=== PATIENT | female | born 1940 | race African-American/Black ===

== ENCOUNTER 2018-06-11 07:53 | Inpatient (IN) ==
--- NOTE | 2018-06-10 08:39 | P.HPNS ---
<GarydoritaGio shu - Last Filed: 06/10/18 12:57> History of Present Illness Service: Neurosurgery Primary Care Physician: UNKNOWN Chief Complaint: Low back pain. History of Present Illness: Pt is a 78 year old female who previously underwent a left L4/L5 in 2010 with improvement of her pain and symptoms. Unfortunately she developed recurrent progressive pain in her low back. She denies associated falls or trauma. She also has pain radiating down her left buttocks posteriorly to her calf. She has numbness and tingling in both calves. She reports of weakness in both legs , left greater than right. She reports of urinary incontinence. She denies bladder incontinence but has urgency. She has undergone several periods of physical therapy multiple times for more than 6 months which only makes her pain worse. She also had three epidural steroid injections with Dr. Velazquez, her pain specialist without relief. She was evaluated by orthopedic surgeon Dr. Nelson who recommended surgery with bone graft. - Diagnosis (1) Degeneration of lumbar intervertebral disc (2) Spinal stenosis of lumbar region (3) Mechanical low back pain Inpatient Certification: I certify that the inpatient services were ordered in accordance with Medicare regulations governing the order. This includes certification that hospital inpatient services are reasonable and necessary and in the case of services not specified as inpatient-only under 42 CFR 419.22(n), that they are appropriately provided as inpatient services in accordance to with the 2-midnight benchmark under 43 CFR 412.3(e) Estimated Total Length of Stay (Days): 3 Plans for Post Hospital Care: Home Review of Systems Constitutional: Denies chills, Denies fever(s) Eyes: Denies double vision, Denies loss of vision Ears, Nose, Mouth, and Throat: Denies sinus pain, Denies sore throat Cardiovascular: Denies chest pain, Denies shortness of breath Respiratory: Denies cough, Denies shortness of breath, Denies wheezing Gastrointestinal: Denies abdominal pain, Denies constipation, Denies nausea, Denies vomiting Musculoskeletal: Reports back pain, Reports numbness Skin/Breast: Denies redness, Denies rash Neurologic: Reports numbness (Numbness and tingling in both calves.), Reports tingling (Numbness and tingling in both calves.) Psychiatric: Denies anxiety, Denies depression Hematologic/Lymphatic: Denies easy bleeding, Denies easy bruising PMFSH - History History Provided By: Patient - Medical History Medical History: Medical History (Last Updated 06/05/18 @ 10:15 by Neva Johnson RN) Diabetes History of anesthesia reaction Hypertension Osteoarthritis Osteoporosis - Surgical History Surgical History: Surgical History (Last Updated 06/05/18 @ 10:15 by Neva Johnson RN) H/O laminectomy - Tobacco History Smoking Status: Never smoker - Alcohol History How Often Do You Have a Drink Containing Alcohol: Never - Substance Use History Substance History: No History of Abuse Medications and Allergies Allergies Allergy/AdvReac Type Severity Reaction Status Date / Time No Known Allergies Allergy Verified 06/11/18 08:53 Home Medications Medication Instructions Recorded Confirmed Type alendronate [Fosamax] 70 mg PO TH 06/05/18 06/11/18 History diclofenac sodium 75 mg PO BID 06/05/18 06/11/18 History gabapentin 300 mg PO BID 06/05/18 06/11/18 History lisinopril 20 mg PO DAILY 06/05/18 06/11/18 History metformin 500 mg PO BID 06/05/18 06/11/18 History metoprolol tartrate 25 mg PO BID 06/05/18 06/11/18 History Exam - Constitutional cooperative - Routine HEENT Exam Head: Present: normocephalic, atraumatic Eye: Present: PERRL. Absent: conjunctival icterus ENT: Present: oropharynx clear - Routine Neck Exam Present: supple, trachea midline - Routine Respiratory Exam Present: CTA bilaterally. Absent: rhonchi, wheezes - Routine Cardiovascular Exam Present: RRR, S1, S2. Absent: murmur - Routine Abdominal Exam Present: soft, normoactive bowel sounds - Routine Skin Exam Absent: cyanosis, erythema - Routine Neurological Exam Present: alert, sensory deficit (decreased in L4 distribution.), moving all extremities, normal tone, normal speech. Absent: motor deficit, normal reflexes (Patella reflexes trace bilaterally Achilles reflex 1+ bilaterally.), plantar reflex, altered mental status Caprini VTE Risk Assessment Caprini VTE Risk Assessment: Moderate/High Risk (score >= 2) VTE Pharmacological Exception Reason: Spinal surgery Caprini Risk Assessment Model: Point Value = 1 Point Value = 2 Point Value = 3 Point Value = 5 Age 41-60 Minor surgery BMI > 25 kg/m2 Swollen legs Varicose veins or History of unexplained or recurrent spontaneous Oral contraceptives or hormone replacement Sepsis (< 1 month) Serious lung disease, including pneumonia (< 1 month) Abnormal pulmonary function Acute myocardial infarction Congestive heart failure (< 1 month) History of inflammatory bowel disease Medical patient at bed rest Age 61-74 Arthroscopic surgery Major open surgery (> 45 min) Laparoscopic surgery (> 45 min) Malignancy Confined to bed (> 72 hours) Immobilizing plaster cast Central venous access Age >= 75 History of VTE Family history of VTE Factor V Leiden Prothrombin [id number] Lupus anticoagulant Anticardiolipin antibodies Elevated serum homocysteine Heparin-induced thrombocytopenia Other congenital or acquired thrombophilia Stroke (< 1 month) Elective arthroplasty Hip, pelvis, or leg fracture Acute spinal cord injury (< 1 month) Prophylaxis Regimen: Total Risk Factor Score Risk Level Prophylaxis Regimen 0-1 Low Early ambulation 2 Moderate Order ONE of the following: *Sequential Compression Device (SCD) *Heparin 5000 units SQ BID 3-4 Higher Order ONE of the following medications: *Heparin 5000 units SQ TID *Enoxaparin/Lovenox 40 mg SQ daily (WT < 150 kg, CrCl > 30 mL/min) *Enoxaparin/Lovenox 30 mg SQ daily (WT < 150 kg, CrCl > 10-29 mL/min) *Enoxaparin/Lovenox 30 mg SQ BID (WT < 150 kg, CrCl > 30 mL/min) AND/OR *Sequential Compression Device (SCD) 5 or more Highest Order ONE of the following medications: *Heparin 5000 units SQ TID (Preferred with Epidurals) *Enoxaparin/Lovenox 40 mg SQ daily (WT < 150 kg, CrCl > 30 mL/min) *Enoxaparin/Lovenox 30 mg SQ daily (WT < 150 kg, CrCl > 10-29 mL/min) *Enoxaparin/Lovenox 30 mg SQ BID (WT < 150 kg, CrCl > 30 mL/min) AND *Sequential Compression Device (SCD) Assessment and Plan - Assessment (1) Degeneration of lumbar intervertebral disc Code(s): M51.36 - Other intervertebral disc degeneration, lumbar region Status : Acute (2) Spinal stenosis of lumbar region Code(s): M48.061 - Spinal stenosis, lumbar region without neurogenic claudication Status: Acute (3) Mechanical low back pain Code(s): M54.5 - Low back pain Status: Acute - Plan Pt has severe degenerative disc disease at L3/L4 and L4/L5 with intractable mechanical back pain and severe secondary spinal stenosis at L3/L4 with clinical evidence of L4 radiculopathy. Her MRI findings correlate with her clinical symptoms. She has failed to improve with conservative treatment including physical therapy, anti-inflammatory medications and muscle relaxants, as well as epidural steroid injections performed by an interventional pain specialist. She has also been seen by orthopedics who has recommended a lumbar decompressive laminectomy and fusion. Pt is scheduled for a L3/L4 with possible L4/L5 hemilaminectomy, mesiofacetectomy, foraminotomy with microsurgical resection of the disc with interbody arthrodesis using PEEK cage. The procedure, risks, benefits, alternative, and recovery time were explained in detail and she wants to proceed and was scheduled accordingly. <Steve Bhat - Last Filed: 06/11/18 17:11> History of Present Illness Primary Care Physician: No Primary Care Physician - Diagnosis (1) Degeneration of lumbar intervertebral disc (2) Spinal stenosis of lumbar region (3) Mechanical low back pain Inpatient Certification: I certify that the inpatient services were ordered in accordance with Medicare regulations governing the order. This includes certification that hospital inpatient services are reasonable and necessary and in the case of services not specified as inpatient-only under 42 CFR 419.22(n), that they are appropriately provided as inpatient services in accordance to with the 2-midnight benchmark under 43 CFR 412.3(e) [facility] - Medical History Medical History: Medical History (Last Updated 06/05/18 @ 10:15 by Neva Johnsno RN) Diabetes History of anesthesia reaction Hypertension Osteoarthritis Osteoporosis - Surgical History Surgical History: Surgical History (Last Updated 06/05/18 @ 10:15 by Neva Johnson RN) H/O laminectomy Medications and Allergies Active Medications: Active Medications Acetaminophen (Tylenol) 650 mg PO Q4H PRN PRN Reason: TEMPERATURE > 101.5 F Hydrocodone Bitart/Acetaminophen ([place] 10/325) 2 tab PO Q4H PRN PRN Reason: PAIN SCALE 6 TO 10 Al Hydroxide/Mg Hydroxide (Milk Of Magnesia Liq) 30 ml PO Q12H PRN PRN Reason: Mild Constipation Albuterol (Albuterol Neb (Prn)) 2.5 mg NEB Q4HR NEB PRN PRN Reason: WHEEZING Bisacodyl (Dulcolax Supp) 10 mg RECTAL DAILY PRN PRN Reason: SEVERE CONSITIPATION Cyclobenzaprine HCl (Flexeril) 10 mg PO Q8H PRN PRN Reason: MUSCLE SPASM Diphenhydramine HCl (Benadryl Inj) 25 mg IV.PUSH Q6H PRN PRN Reason: for itching Gabapentin (Neurontin) 300 mg PO BID [facility] Lactated Ringer's (Lr 1000 Ml Inj) 1,000 mls @ 30 mls/hr IV.SIG .Q24H [facility] Stop: 06/12/18 08:29 Last Admin: 06/11/18 09:44 Dose: 30 mls/hr Sodium Chloride (Ns Inj) 500 mls @ 30 mls/hr IV.SIG .Q10H [facility] Vancomycin HCl 1,000 mg/ (Sodium Chloride) 250 mls @ 250 mls/hr IV.SIG QUALITY ASSURANCE SUPERVISOR FINAL [facility] Stop: 06/14/18 08:59 Last Admin: 06/11/18 09:50 Dose: 250 mls/hr Sodium Chloride (Ns Inj) 1,000 mls @ 30 mls/hr IV.SIG .Q24H [facility] Cefazolin Sodium/Dextrose (Ancef 2 Gm Premix Inj) 2 gm in 50 mls @ 100 mls/hr IV.SIG Q8H [facility] Stop: 06/12/18 08:29 Hydromorphone/Sodium Chloride (Dilaudid Soil Engineer Inj) 6 mg in 30 mls @ 0 mls/hr ASSOCIATE ACCOUNT EXECUTIVE UNSCH PRN PRN Reason: prn pain Lactulose (Lactulose Liq) 30 ml PO DAILY PRN PRN Reason: SEVERE CONSITIPATION Lisinopril (Prinivil) 20 mg PO DAILY [facility] Metoprolol Tartrate (Lopressor) 25 mg PO BID [facility] Miscellaneous Information (Misc Nursing Information) 0 each OTHER UNSCH PRN PRN Reason: SEE LABEL COMMENTS Stop: 06/12/18 15:08 Morphine Sulfate (Morphine Inj) 2 mg IV.PUSH Q2H PRN PRN Reason: Pain Scale 1 to 6 Naloxone HCl (Narcan Inj) 0.4 mg IV.PUSH PRN PRN PRN Reason: SEE LABEL COMMENTS Pantoprazole Sodium (Protonix) 40 mg PO DAILY [facility] Senna/Docusate Sodium (Sloane-Colace) 1 tab PO BID [facility] Sennosides (Senokot) 17.2 mg PO Q12H PRN PRN Reason: Moderate Constipation Exam Vital signs: Vital Signs 06/11/18 09:03 Temperature 98.5 F Pulse Rate 85 Respiratory Rate 22 Blood Pressure 155/107 H Pulse Oximetry 98 Intake & Output 06/10/18 06/11/18 06/11/18 18:59 06:59 18:59 Intake Total 2300 / 2300 Output Total 1700 / 1700 Balance 600 / 600 Weight 49.2 kg Intake: Anesthesia Amount 2300 / 2300 Output: Estimated Blood Loss 200 / 200 Urine Amount (Catheter) 1500 / 1500 Indwelling Urethral Catheter 1500 / 1500 Other: Weight On Admission 49.2 kg Narrative: Ms. Barragan is alert, awake and oriented to time, place and person. Speech is fluent. Cranial nerve examination: pupils to be equal, round and reactive to light. Extra-ocular movements are intact. Facial motor and sensory function are normal and symmetrical. Gross hearing appears intact. Sternocleidomastoid and trapezius muscles are symmetrical. Other cranial nerves are intact. Neck is soft and supple with a good range of motion without pain. Muscle strength is normal in all muscle groups of both upper and lower extremities. Sensory examination is intact to light touch and pin prick in both upper extremities, and decreased in a L4 and L5 dermatomal distribution Deep tendon reflexes are symmetrical in both upper extremities. In the lower extremities the patella are trace and Achilles are 1+. There is a bilateral plantar flexion response. Cerebellar examination is unremarkable, without deficits. Lungs are clear. No wheezing Heart with regular rhythm and rate Skin dry and warm Caprini VTE Risk Assessment Caprini Risk Assessment Model: Point Value = 1 Point Value = 2 Point Value = 3 Point Value = 5 Age 41-60 Minor surgery BMI > 25 kg/m2 Swollen legs Varicose veins or History of unexplained or recurrent spontaneous Oral contraceptives or hormone replacement Sepsis (< 1 month) Serious lung disease, including pneumonia (< 1 month) Abnormal pulmonary function Acute myocardial infarction Congestive heart failure (< 1 month) History of inflammatory bowel disease Medical patient at bed rest Age 61-74 Arthroscopic surgery Major open surgery (> 45 min) Laparoscopic surgery (> 45 min) Malignancy Confined to bed (> 72 hours) Immobilizing plaster cast Central venous access Age >= 75 History of VTE Family history of VTE Factor V Leiden Prothrombin [id number] Lupus anticoagulant Anticardiolipin antibodies Elevated serum homocysteine Heparin-induced thrombocytopenia Other congenital or acquired thrombophilia Stroke (< 1 month) Elective arthroplasty Hip, pelvis, or leg fracture Acute spinal cord injury (< 1 month) Prophylaxis Regimen: Total Risk Factor Score Risk Level Prophylaxis Regimen 0-1 Low Early ambulation 2 Moderate Order ONE of the following: *Sequential Compression Device (SCD) *Heparin 5000 units SQ BID 3-4 Higher Order ONE of the following medications: *Heparin 5000 units SQ TID *Enoxaparin/Lovenox 40 mg SQ daily (WT < 150 kg, CrCl > 30 mL/min) *Enoxaparin/Lovenox 30 mg SQ daily (WT < 150 kg, CrCl > 10-29 mL/min) *Enoxaparin/Lovenox 30 mg SQ BID (WT < 150 kg, CrCl > 30 mL/min) AND/OR *Sequential Compression Device (SCD) 5 or more Highest Order ONE of the following medications: *Heparin 5000 units SQ TID (Preferred with Epidurals) *Enoxaparin/Lovenox 40 mg SQ daily (WT < 150 kg, CrCl > 30 mL/min) *Enoxaparin/Lovenox 30 mg SQ daily (WT < 150 kg, CrCl > 10-29 mL/min) *Enoxaparin/Lovenox 30 mg SQ BID (WT < 150 kg, CrCl > 30 mL/min) AND *Sequential Compression Device (SCD) Assessment and Plan - Assessment (1) Degeneration of lumbar intervertebral disc Code(s): M51.36 - Other intervertebral disc degeneration, lumbar region Status : Acute (2) Spinal stenosis of lumbar region Code(s): M48.061 - Spinal stenosis, lumbar region without neurogenic claudication Status: Acute (3) Mechanical low back pain Code(s): M54.5 - Low back pain Status: Acute - Plan Tello discussed the [id number] details of the surgical procedure, its indications, alternatives, risks, and potential complications. Risks and potential complications include, but are not limited to, infection, blood loss, CSF leak, partial or complete loss of sight in one or both eyes, paresis, paralysis, permanent pain or difficulty swallowing, loss of bowel or bladder function, complications from anesthesia, blood clot, stroke, myocardial infarction, or even . The possibility of nonoperative treatment has been offered.
[2018-06-11] MEDS ORDERED: Chlorhexidine Gluconate 2% 1 Pack (2 Cloths) TOPICAL ONE (08:29)
[2018-06-11] MEDS ORDERED: Metoprolol Tartrate 25 MG Tablet PO ONE (08:29)
[2018-06-11] MEDS ORDERED: Bupivacaine Liposomal PF 1.3% Inj 20 ML Vial ONE (08:42)
[2018-06-11] MEDS ORDERED: Gelatin Size 100 Topical Foam ONE (08:45)
[2018-06-11] MEDS ORDERED: Thrombin Topical Soln 5,000 UNIT Vial TOPICAL ONE (08:45)
[2018-06-11] MEDS ORDERED: Sod Chloride 0.9% Inj 1,000 ML IV.SIG SCH (08:45)
[2018-06-11] MEDS ORDERED: Sodium Chlor 0.9% Inj 500 ML IV.SIG SCH (09:00)
[2018-06-11] MEDS ORDERED: Vancomycin Inj 1,000 MG in Sodium Chlor 0.9% Inj 250 ML IV.SIG SCH (09:00)
[2018-06-11] MEDS ORDERED: Bisacodyl 10 MG Supp RECTAL PRN (09:29)
[2018-06-11] MEDS ORDERED: Morphine Sulfate Inj 2 MG/ML Vial IV.PUSH PRN (09:31)
[2018-06-11] MEDS ORDERED: Acetaminophen 325 MG Tablet PO PRN (09:31)
[2018-06-11] MEDS ORDERED: Ketamine Inj 500 MG/10 ML Vial ONE (09:42)
[2018-06-11] MEDS ORDERED: fentaNYL Citrate Inj 250 MCG/5 ML Ampul ONE (09:42)
[2018-06-11] MEDS ORDERED: Propofol Inj 500 MG/50 ML Vial ONE (09:42)
[2018-06-11] MEDS ORDERED: Glycopyrrolate Inj 1 MG/5 ML Syringe IV.PUSH ONE (09:51)
[2018-06-11] MEDS ORDERED: Lidocaine PF 1% Inj 5 ML Syringe INFILTRATN ONE (09:51)
[2018-06-11] MEDS ORDERED: Phenylephrine/NS 1000 MCG/10ML Syringe IV.PUSH ONE (09:51)
[2018-06-11] MEDS ORDERED: Neostigmine Inj 5 MG/5 ML Syringe IV.PUSH ONE (09:51)
[2018-06-11] MEDS ORDERED: Naloxone Inj 0.4 MG/ML Vial IV.PUSH PRN (15:07)
[2018-06-11] MEDS ORDERED: HYDROmorphone PCA Inj 6 MG/30 ML PCA.VIAL PCA PRN (15:07)
--- NOTE | 2018-06-11 15:28 | XR ---
EXAM DATE: 06/11/2018 3:20 PM EST AGE/SEX: 78 years / Female INDICATIONS: Lumbar fusion, L3-4, 4-5 CLINICAL DATA: This is the patient's initial encounter. Patient reports that signs and symptoms have been present for 1 day and indicates a pain score of Nonresponsive. MEDICAL/SURGICAL HISTORY: Non-responsive. Non-responsive. COMPARISON: No prior exams available for comparison. FINDINGS: Frontal and lateral spot intraoperative fluoroscopic views of the lumbar spine demonstrate posterior gordon and transpedicular screw fixation at L3-L5, and intervertebral fusion hardware placement at L3-4. CONCLUSION: Postsurgical changes. Electronically signed by: Ochoa Combs MD Board Certified Radiologist 06/11/2018 3:27 PM EST
--- NOTE | 2018-06-11 17:18 | P.OP ---
Preoperative Diagnosis: lumbar degenerative disk disease Lumbar radiculopathy Mechanical back pain Postoperative Diagnosis: lumbar degenerative disk disease Lumbar radiculopathy Mechanical back pain Date of procedure: 06/11/18 Procedure: L3-4, L4-L5 redo laminectomy, interbody arthrodhesis using PEEK cage and autologous bone graft, L3-4, L4-L5 instrumental fixation using transpedicular screws and rods, L3-4, L4-L5 posterolateral fusion using autologous bone graft and demineralized bone matrix. Microsurgical dissection Anesthesia: GETA Surgeon: Steve Bhat MD Plastic Tool Maker: Gio Encinas Pathology: none sent Operation and Findings: INDICATIONS FOR THE SURGICAL PROCEDURE Mr miranda is a 78 year-old female who had history of s prior l4-5 laminectomy and presented with intractable mechanical back pain and carlos evidence of L4 and L5 lower extremity radiculopathy. He has failed maximum nonsurgical management including multiple modalities of conservative treatment as well as pain management interventions by an interventional pain specialist. A surgical decompression and arthrodhesis were indicated as a last resort. The [id number] details of the procedure, indications, alternatives, risks and potential complications were fully discussed with the patient. The patient fully understood. All the questions were answered. No guarantees were given. He voiced requesting the procedure and provided informed consents. He was offered the alternative of delaying the procedure and continuing with nonsurgical management. DETAILS OF THE SURGICAL PROCEDURE Prior to the procedure, the procedure, risks, and potential complications revisited with the patient. Placement of electrodes for intraoperative neurophysiological monitoring was completed. The patient was taken to the operative room, and following induction of general anesthesia, endotracheal intubation was performed. A Cobb catheter, bilateral LUANN hose and sequential compression devices were placed and kept throughout the procedure. The patient was positioned prone, over a Christian table over a bolsters. All pressure in the preoperative surgical holding room points were carefully padded with eggcrate and gel mattress. The eyes were tapped shut after ointment was applied by the anesthesiologist to prevent corneal abrasion. A Mary hugger was placed over the expossed lower body to maintain control of the core body temperature. The electrophysiological team placed the needles and electrodes in their proper location and baseline SSEP's and motor evoked potentials were registered. The entrance to each pedicles was marked using a C arm. The lumbar region was prepped and draped in the usual sterile fashion. The surgical procedure was performed in several steps as follow: SURGICAL APPROACH Once the patient was positioned, a localizing cross-table lateral and AP x-ray was performed with a C-arm. Two paramedian small incisions were outlined on the skin approximately 3cm from the midline. The skin incisions were made with a # 10 blade. Small bleeders were controlled with the cautery. The dissection was then carried out into deeper planes and through the thoracolumbar fascia with a Bovie. The intermuscular septum was identified and the muscles were blunted dissected along the septum. The facets and transverse process of L3-4, L4,5 were exposed and the proper anatomical landmarks were identidied. A microsurgical self-retaining retractor was placed on the incision, and a localizing lateralizing cross-table x-ray was performed with an instrument underneath a lamina of the lumbar spine. INSTRUMENTAL FIXATION At this point in the procedure, placement of bilateral transpedicular screws was necessary for stabilization of the spine. Initially, the entry point for the screw was selected anatomically at the junction of the facet, with the transverse process, and the pars interarticularis at L3-4, L4,5. This was started with a Giamshetti needle, followed by the use of K wire. A tap was used to create the threads for the screws. Finally bilateral transpedicular screws were carefully placed bilaterally at L3, L4, and L5 under fluoroscopic visualization. An appropriate purchase was achieved with all screws. The position of each screw was assessed anatomically with an AP, lateral, oblique Xrays. An intraoperative scan view of the spine was then performed using the iso -centric c-arm. Each screw was then assessed electrophysiologically stimulating each screw with a nerve stimulator. SURGICAL DECOMPRESSION There was significant mass effect with compression of the neural structures. In order to relieve neural compression, it was necessary to perform a decompressive laminectomy, with decompression of the spinal canal and bilateral lateral recesses. Note that the scope of such decompression was significantly more extensive than the minimal exposure necessary to perform an interbody fusion, as there was extreme facet arthropathy with severe degeneration of the disk spaces and stenosis cause by the hyperthrophic joint facets. At this point of the procedure the operative microscope was draped in the usual sterile fashion and brought to the field. The rest of the surgical procedure was performed using microdissection technique with the exception of the closure. Once the level was confirmed, the margins of the prior laminectomy were exposed. There was extensive scar tissue from the prior surgery. Once the bony margins were exposed, a laminectomy was performed extending slightly the prior opening using the TPS drill with an AM-8 drill bit. Under the operating microscope, a decompressive laminectomy was carried out at L3-4, L4,5 as follow: The laminae, base of the spinous processes and facets were carefully drilled exposing the ligamentum flavum. The facets were abnormal with severe spondylolisthesis and gross mechanical instability. A large disk protusion was compressing the neural structures and exiting nerve roots. A near complete facetectomy was necessary resulting in further mechanical instability. The ligamentum flavum appeared hypertrophic, resulting on mass effect on the dorsal surface of the neural structures. The superior free border of the ligamentum flavum was elevated with a ligament dissector and the ligamentum flavum was removed with a 3 and 4 mm Kerrison forceps. The ligament was very adherent to the dural sac and during the dissection, ans extreme care was taken during the dissection. The exiting nerve roots were identified, and a wide foraminotomy was performed with a Kerrison in their trajectory towards the neural foramen. Epidural veins located laterally to the dural sac were coagulated with the bipolar cautery, and then incised using microscissors. Gentle medial retraction of the dural sac allowed me to expose the disc space for the discectomy. Upon completion of the discectomy, an excellent decompression of the neural structures was achieved. Increased motion was noted thorough the procedure, which was consistent with mechanical instability at L3-4 , L4,5. INTERBODY ARTHRODHESIS In order to correct the narrowing of the disk space and maintain distraction of the space, and to achieve a solid interbody fusion, it was necessary the insertion of an interbody device into the disk space. Otherwise, the disk space would collapse, compromising the result of the surgical procedure. At this point of the procedure, the annulus fibrosus of the disk was carefully coagulated with a bipolar cautery and incised using an 11 bladed knife. Then, a microdiscectomy was carried out in a standard fashion using a combination of straight and up-biting pituitary forceps. A reverse angle curette was applied underneath the posterior longitudinal ligament, and used to push the disk fragments into the disk space, so they can be safely removed with a pituitary forceps. Once the discectomy was completed, it was necessary to decorticate the endplates, in order to eliminate the cartilaginous endplate and to expose healthy bone appropriate to perform the interbody fusion. The endplates at L3-4 were then thoroughly decorticated using increasing size bone dexter and ring curets, eliminating the cartilaginous fragments from both, the superior and inferior endplates. A disk space distractor was applied to the pedicle screws and gentle distraction was applied. This maneuver was assisted by the use of a disk distractor. Increased motility was noted at the disk, which was consistent with instability due to facet arthropathy. Once a thorough preparation of the disk space was achieved, the disk space was irrigated with antibiotic solution, and the interbody fusion was performed by carefully impacting PPEK cages filled with autologous iliac crest bone graft. The use of several shoe impactors with different angulation, allowed me for an excellent, proper position of the interbody cages L3-4 and L4,5. A solid position of the cage with good purchase was achieved. The position of the cages were assessed anatomically with a probe and radiologically with the C-arm. POSTEROLATERAL FUSION The posterolateral fusion is a critical component to the procedure, to prevent future fatigue and failure of the instrumental fixation. Initially, the transverse processes of the vertebral bodies, lateral surface of the facets and the lateral gutters of the spine were carefully cleaned, eliminating all soft tissue and muscle attachments. The area was then irrigated with a large amount of antibiotic solution. Subsequently, the transverse processes, lateral surface of the facets, and lateral gutters of the spine were thoroughly decorticated using the TPS drill with a 5mm cutting delmar, exposing cancellous bone, in preparation for the posterolateral fusion. The incision was again irrigated with antibiotic solution. Then, the posterolateral fusion was then performed by carefully packing the lateral gutters of the spine at L3-4, L4,5 with autologous iliac crest bone combined with demineralized bone matrix. I packed as much bone as possible. COMPLETION OF THE INSTRUMENTATION AND CLOSURE The rods were brought to the field, applied to all the screws, and the screw caps were sequentially applied. Compression was performed between the pedicle screws, and final tightening of the screws was completed using a torque wrench. The incision was again thoroughly irrigated with several liters of antibiotic solution, and hemostasis secured with the bipolar cautery. A Valsalva Maneuver performed by the anesthesiologist failed to show any evidence of cerebrospinal fluid leak or bleeding. A 7 mm Christian-Lozada drain was left in the epidural space and externalized through a separate stab incision. The incision was then closed in planes. 0 Vicryl was used in an interrupted fashion to close the thoracolumbar fascia and the superficial fascia. The subcutaneous tissue was then approximated using 3-0 Vicryl in an interrupted fashion. Special care was taken to avoid space. The skin was then closed with 4-0 Vicryl in a running, subcuticular fashion. Dermabond was applied to the skin. Each plane of closure was irrigated with antibiotic solution. At the end of the procedure the sponge, needle and instrument counts were all correct. Estimated blood loss was 250 cc. No blood transfusion was given. The entire procedure was performed using continuous electrophysiological monitoring of the somatosensorial evoked potentials and EMG. The patient received prophylactic antibiotics. The patient was then extubated and transferred to the recovery room in stable condition.
[2018-06-11] MEDS: ceFAZolin 2 GM Premix Inj 2 GM/50 ML PIGGYBACK IV.SIG SCH (17:30)
--- NOTE | 2018-06-11 17:30 | P.CONIM ---
History of Present Illness Consult date: 06/11/18 Reason for Consult: medical management of DM and HTN Primary Care Provider: No Primary Care Physician History of Present Illness: 78 yo F with h/o HTN,DM,Lower back pain, lumbar spinal stenosis, degenerative disease of lumbar intervertebral disc with radiculopathy, failed conservative management, underwent elective surgery this afternoon. Hospitalist service is consulted to assist with medical management of her DM and HTN. Patient was seen and examined while at the PACU. History was limited since patient was still under effect of anaesthesia. She was drowsy but arousable and was obeying commands when I saw her. Discussed with the nurse at bedside, Patient's systolic BP was 90's when she was brought to PACU, she was started on NS, systolic BP now in 120's range, Heart rate 80's. Patient's home BP and DM medication reviewed in EMR include: Lisinopril 20mg, Metoprolol Metformin 500mg bid. labs reviewed, fasting glucose was 99 on 06/05/18. [facility] History History Provided By: Medical Record Medical History Medical History Diabetes (Acute) History of anesthesia reaction (Acute) Hypertension (Acute) Osteoarthritis (Acute) Osteoporosis (Acute) Surgical History Surgical History H/O laminectomy (Acute) Social History Social History Substance History: No History of Abuse Second Hand Smoke Exposure: No Smoking Status: Never smoker How Often Do You Have a Drink Containing Alcohol: Never Recent Travel in [facility] within the Last 8 Weeks: No Recent Out of Country Travel within the Last 8 Weeks: No Medications and Allergies Allergies Allergy/AdvReac Type Severity Reaction Status Date / Time No Known Allergies Allergy Verified 06/11/18 08:53 Home Medications Medication Instructions Recorded Confirmed Type alendronate [Fosamax] 70 mg PO TH 06/05/18 06/11/18 History diclofenac sodium 75 mg PO BID 06/05/18 06/11/18 History gabapentin 300 mg PO BID 06/05/18 06/11/18 History lisinopril 20 mg PO DAILY 06/05/18 06/11/18 History metformin 500 mg PO BID 06/05/18 06/11/18 History metoprolol tartrate 25 mg PO BID 06/05/18 06/11/18 History Active Medications: Active Medications Acetaminophen (Tylenol) 650 mg PO Q4H PRN PRN Reason: TEMPERATURE > 101.5 F Hydrocodone Bitart/Acetaminophen (Bricelyn 10/325) 2 tab PO Q4H PRN PRN Reason: PAIN SCALE 6 TO 10 Al Hydroxide/Mg Hydroxide (Milk Of Magnesia Liq) 30 ml PO Q12H PRN PRN Reason: Mild Constipation Albuterol (Albuterol Neb (Prn)) 2.5 mg NEB Q4HR NEB PRN PRN Reason: WHEEZING Bisacodyl (Dulcolax Supp) 10 mg RECTAL DAILY PRN PRN Reason: SEVERE CONSITIPATION Cyclobenzaprine HCl (Flexeril) 10 mg PO Q8H PRN PRN Reason: MUSCLE SPASM Diphenhydramine HCl (Benadryl Inj) 25 mg IV.PUSH Q6H PRN PRN Reason: for itching Gabapentin (Neurontin) 300 mg PO BID FRANAC Lactated Ringer's (Lr 1000 Ml Inj) 1,000 mls @ 30 mls/hr IV.SIG .Q24H [facility] Stop: 06/12/18 08:29 Last Admin: 06/11/18 09:44 Dose: 30 mls/hr Sodium Chloride (Ns Inj) 500 mls @ 30 mls/hr IV.SIG .Q10H FRANCA Vancomycin HCl 1,000 mg/ (Sodium Chloride) 250 mls @ 250 mls/hr IV.SIG DIRECTOR OF COMMUNITY SERVICES [facility] Stop: 06/14/18 08:59 Last Admin: 06/11/18 09:50 Dose: 250 mls/hr Sodium Chloride (Ns Inj) 1,000 mls @ 30 mls/hr IV.SIG .Q24H FRANCA Cefazolin Sodium/Dextrose (Ancef 2 Gm Premix Inj) 2 gm in 50 mls @ 100 mls/hr IV.SIG Q8H [facility] Stop: 06/12/18 08:29 Hydromorphone/Sodium Chloride (Dilaudid Electronic Communications Technician Inj) 6 mg in 30 mls @ 0 mls/hr SOCIAL SERVICES COORDINATOR UNSCH PRN PRN Reason: prn pain Lactulose (Lactulose Liq) 30 ml PO DAILY PRN PRN Reason: SEVERE CONSITIPATION Lisinopril (Prinivil) 20 mg PO DAILY [facility] Metoprolol Tartrate (Lopressor) 25 mg PO BID [facility] Miscellaneous Information (Mis Nursing Information) 0 each OTHER UNSCH PRN PRN Reason: SEE LABEL COMMENTS Stop: 06/12/18 15:08 Morphine Sulfate (Morphine Inj) 2 mg IV.PUSH Q2H PRN PRN Reason: Pain Scale 1 to 6 Naloxone HCl (Narcan Inj) 0.4 mg IV.PUSH PRN PRN PRN Reason: SEE LABEL COMMENTS Pantoprazole Sodium (Protonix) 40 mg PO DAILY [facility] Senna/Docusate Sodium (Sloane-Colace) 1 tab PO BID [facility] Sennosides (Senokot) 17.2 mg PO Q12H PRN PRN Reason: Moderate Constipation Physical Exam Vital signs: Vital Signs 06/11/18 09:03 Temperature 98.5 F Pulse Rate 85 Respiratory Rate 22 Blood Pressure 155/107 H Pulse Oximetry 98 Intake & Output 06/10/18 06/11/18 06/11/18 18:59 06:59 18:59 Intake Total 2300 / 2300 Output Total 1700 / 1700 Balance 600 / 600 Weight 49.2 kg Intake: Anesthesia Amount 2300 / 2300 Output: Estimated Blood Loss 200 / 200 Urine Amount (Catheter) 1500 / 1500 Indwelling Urethral Catheter 1500 / 1500 Other: Weight On Admission 49.2 kg Narrative: GENERAL: elderly woman in good general condition, not in distress, laying on bed.warming ongoing. HEENT:not pale,anicteric,nasal canula in situ. CARDIOVASCULAR: Regular rate and rhythm without murmurs, gallops, or rubs. RESPIRATORY: Clear to auscultation. Breath sounds equal bilaterally. No wheezes , rales, or rhonchi. GASTROINTESTINAL: Abdomen soft, non-tender, nondistended. Normal active bowel sounds MUSCULOSKELETAL: Extremities without clubbing, cyanosis, or edema.Has drain at back. NEURO: drowsy but arousable, obeys commands when awoken. Urinary Catheter Management Indwelling Urethral Catheter: Cath placed during this visit: yes Reason for continuing: Hourly intake/output Insertion date: 06/11/18 Insertion time: 10:20 Results Labs CBC & Chem 7: 06/11/18 17:37 06/11/18 17:37 Imaging Impressions Lumbar Spine X-Ray 06/11/18 00:00 CONCLUSION: Postsurgical changes. ABG Impressions Lumbar Spine X-Ray 06/11/18 00:00 CONCLUSION: Postsurgical changes. 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 Hospitalist service consulted to assist with HTN and DM management. Patient's systolic BP immediately post op was 90's.Now in the 120's while on NS. Hold BP meds tonight and Can resume her usual BP medication starting 06/12/18 if systolic BP >140. For her DM, would hold of Metformin while she is inpatient,and keep her on a low sliding scale insulin with glucose checks. Pain control as per surgical team. DVT ppx when _ (1) Spinal stenosis of lumbar region Qualifiers: Neurogenic claudication status:
[2018-06-11] MEDS ORDERED: Dextrose 50% in Water 50 ML Vial IV.PUSH PRN (17:53)
[2018-06-11 17:57] LABS: Baso # (Auto) 0.1 th/mm3 (0.0-0.2); Baso % (Auto) 0.6 % (0.0-2.0); Eos % (Auto) 0.1 % (0.0-4.0); Hematocrit 34.5 % (35.0-46.0); Hemoglobin 11.5 gm/dL (11.6-15.3); Lymph # (Auto) 1.2 th/mm3 (1.0-4.8); Lymph % (Auto) 7.9 % (9.0-44.0); Mean Corpuscular HGB Conc 33.4 % (32.0-36.0); Mean Corpuscular Hemoglobin 30.7 pg (27.0-34.0); Mean Corpuscular Volume 91.9 fL (80.0-100.0); Mean Platelet Volume 8.4 fL (7.0-11.0); Mono # (Auto) 0.5 th/mm3 (0.0-0.9); Mono % (Auto) 3.6 % (0.0-8.0); Neut # (Auto) 12.8 th/mm3 (1.8-7.7); Neut % (Auto) 87.8 % (16.0-70.0); Platelet Count 263 th/mm3 (150-450); Red Blood Count 3.75 mil/mm3 (4.00-5.30); White Blood Count 14.6 th/mm3 (4.0-11.0)
[2018-06-11] MEDS ORDERED: Morphine Inj 4 MG/ML Vial ONE (18:07)
[2018-06-11 18:26] LABS: Anion Gap 7 meq/L (5-15); Blood Urea Nitrogen 9 mg/dL (7-18); Calcium 7.9 mg/dL (8.5-10.1); Chloride 107 meq/L (98-107); Glomerular Filtration Rate Greater Than 89 mL/min (>89); Glucose,Random 213 mg/dL (74-106); Potassium 4.3 meq/L (3.5-5.1); Sodium 142 meq/L (136-145)
[2018-06-11] MEDS: Sod Chloride 0.9% Inj 1,000 ML IV.SIG SCH (18:58)
[2018-06-11] MEDS: Senna/Docusate Sodium 8.6/50 MG Tablet PO SCH (21:59)
[2018-06-11] MEDS: Gabapentin 300 MG Capsule PO SCH (21:59)
[2018-06-11] MEDS: Insulin NovoLOG Aspart Correctional Sugar Inj SQ SCH (21:59)
[2018-06-12] MEDS: ceFAZolin 2 GM Premix Inj 2 GM/50 ML PIGGYBACK IV.SIG SCH ×2 (00:30→08:00)
[2018-06-12] MEDS: Sod Chloride 0.9% Inj 1,000 ML IV.SIG SCH (08:25)
[2018-06-12] MEDS: Gabapentin 300 MG Capsule PO SCH ×2 (08:25→21:36)
[2018-06-12] MEDS: Insulin NovoLOG Aspart Correctional Sugar Inj SQ SCH ×4 (08:26→21:36)
[2018-06-12] MEDS: Senna/Docusate Sodium 8.6/50 MG Tablet PO SCH ×2 (08:26→21:36)
[2018-06-12] MEDS ORDERED: Lisinopril 20 MG Tablet PO SCH (09:00)
--- NOTE | 2018-06-12 11:47 | P.PNIM ---
Subjective Interval history: feeling well. not in pain. started mobilizing today. Physical Exam Vital signs: Vital Signs 06/11/18 15:04 06/11/18 15:15 06/11/18 15:30 Temperature 94.9 F L 94.9 F L Pulse Rate 90 86 85 Respiratory Rate 0 L 15 13 Blood Pressure 148/85 H 143/80 H 145/82 H Pulse Oximetry 40 L 97 98 06/11/18 15:45 06/11/18 16:00 06/11/18 16:15 Temperature 95.7 F L Pulse Rate 86 89 87 Respiratory Rate 16 20 16 Blood Pressure 132/78 141/75 H 134/73 Pulse Oximetry 96 100 95 06/11/18 16:30 06/11/18 16:35 06/11/18 16:45 Temperature 95.1 F L Pulse Rate 88 91 H Respiratory Rate 20 23 Blood Pressure 128/74 123/74 Pulse Oximetry 97 98 06/11/18 17:00 06/11/18 17:15 06/11/18 18:00 Temperature 97 F L 97.3 F L Pulse Rate 94 H 94 H 96 H Respiratory Rate 22 22 20 Blood Pressure 120/81 122/73 109/67 Pulse Oximetry 96 93 L 95 06/11/18 19:00 06/11/18 19:07 06/11/18 19:30 Temperature 97.3 F L Pulse Rate 94 H 93 H 92 H Respiratory Rate 18 17 15 Blood Pressure 103/64 105/61 113/65 Pulse Oximetry 94 L 93 L 06/11/18 19:53 06/11/18 20:00 06/11/18 20:02 Temperature 97.7 F Pulse Rate 94 H 91 H Respiratory Rate 20 17 Blood Pressure 110/64 Pulse Oximetry 95 96 95 06/11/18 20:23 06/11/18 20:53 06/11/18 21:00 Temperature Pulse Rate 94 H 93 H 93 H Respiratory Rate 18 18 16 Blood Pressure 121/71 120/73 Pulse Oximetry 95 93 L 93 L 06/11/18 21:23 06/11/18 21:53 06/11/18 22:00 Temperature Pulse Rate 96 H 94 H 95 H Respiratory Rate 29 H 16 13 Blood Pressure 131/76 128/76 Pulse Oximetry 95 94 L 93 L 06/11/18 22:23 06/11/18 22:53 06/11/18 23:00 Temperature Pulse Rate 95 H 96 H 96 H Respiratory Rate 13 13 13 Blood Pressure 136/80 122/70 Pulse Oximetry 97 94 L 96 06/11/18 23:23 06/11/18 23:53 06/12/18 00:00 Temperature 97.9 F Pulse Rate 96 H 97 H 97 H Respiratory Rate 13 14 14 Blood Pressure 117/68 120/69 Pulse Oximetry 95 96 95 06/12/18 00:23 06/12/18 00:53 06/12/18 01:00 Temperature Pulse Rate 98 H 101 H 101 H Respiratory Rate 19 20 19 Blood Pressure 126/71 132/74 Pulse Oximetry 95 97 96 06/12/18 01:23 06/12/18 01:53 06/12/18 02:00 Temperature Pulse Rate 101 H 99 H 98 H Respiratory Rate 16 15 15 Blood Pressure 142/78 H 111/65 Pulse Oximetry 95 96 96 06/12/18 02:23 06/12/18 02:53 06/12/18 03:00 Temperature Pulse Rate 98 H 98 H 97 H Respiratory Rate 15 15 14 Blood Pressure 118/66 107/63 Pulse Oximetry 97 97 97 06/12/18 03:23 06/12/18 03:53 06/12/18 04:00 Temperature Pulse Rate 104 H 103 H 102 H Respiratory Rate 19 20 16 Blood Pressure 114/66 132/68 Pulse Oximetry 97 97 97 06/12/18 04:39 06/12/18 07:00 06/12/18 07:23 Temperature Pulse Rate 103 H 105 H Respiratory Rate 18 23 Blood Pressure 124/63 Pulse Oximetry 97 95 95 06/12/18 07:53 06/12/18 08:00 06/12/18 08:05 Temperature 98.3 F Pulse Rate 104 H 103 H Respiratory Rate 17 17 Blood Pressure 112/65 Pulse Oximetry 95 95 97 06/12/18 08:23 06/12/18 08:25 06/12/18 08:53 Temperature Pulse Rate 106 H 103 H Respiratory Rate 20 18 14 Blood Pressure 118/72 131/61 Pulse Oximetry 95 95 06/12/18 09:00 06/12/18 10:00 Temperature Pulse Rate 102 H 95 H Respiratory Rate 14 Blood Pressure Pulse Oximetry 92 L Intake & Output 06/11/18 06/12/18 06/12/18 18:59 06:59 18:59 Intake Total 3050 / 3050 350 / 350 1050 / 1050 Output Total 2660 / 2660 520 / 520 Balance 390 / 390 -170 / -170 1050 / 1050 Weight 49.2 kg Intake: IV 50 / 50 50 / 50 1050 / 1050 NS Inj 1,000 ML @ 75 mls/hr IV. 1000 / 1000 SIG .[id number] FRANCA Rx#:[id number] Ancef 2 GM Premix Inj 2 gm In 50 / 50 50 / 50 50 / 50 50 ml @ 100 mls/hr IV.SIG Q8H FRANCA Rx#:[id number] Oral 0 / 0 300 / 300 Anesthesia Amount 2300 / 2300 Other 700 / 700 Output: Estimated Blood Loss 200 / 200 Urine Amount (Catheter) 2400 / 2400 500 / 500 Indwelling Urethral Catheter 2400 / 2400 500 / 500 Wound Drainage 60 / 60 20 / 20 # 1 Back EUGENIO Drain 60 / 60 20 / 20 Other: Weight On Admission 49.2 kg Narrative: GENERAL: elderly woman in good general condition, not in distress, seating on chair. HEENT:not pale,anicteric,nasal canula in situ. CARDIOVASCULAR: Regular rate and rhythm without murmurs, gallops, or rubs. RESPIRATORY: Clear to auscultation. Breath sounds equal bilaterally. No wheezes , rales, or rhonchi. GASTROINTESTINAL: Abdomen soft, non-tender, nondistended. Normal active bowel sounds MUSCULOSKELETAL: Extremities without clubbing, cyanosis, or edema.Back brace in place. NEURO: awake,alert, oriented. Urinary Catheter Management Indwelling Urethral Catheter: Cath placed during this visit: yes Reason for continuing: Hourly intake/output Insertion date: 06/11/18 Insertion time: 10:20 Results Labs CBC & Chem 7: 06/11/18 17:37 06/11/18 17:37 Imaging Imaging: Impressions Lumbar Spine X-Ray 06/11/18 00:00 CONCLUSION: Postsurgical changes. 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 Hospitalist service consulted to assist with HTN and DM management. H/o HTN--her systolic BP range has been in the 110's to 130's. Keep holding BP medication for now while inpatient, can resume if systolic persistently greater than 140. She should continue usual home meds on discharge. For her DM, would hold of Metformin while she is inpatient,and keep her on a low sliding scale insulin with glucose checks. Glucose Pain control as per surgical team. DVT ppx with Lovenox can be started when ok from surgical stand point. Progress Note: Quality VTE Deep Vein Thrombosis/Pulmonary Embolism Present on Admission: No _ (1) Spinal stenosis of lumbar region Qualifiers: Neurogenic claudication status:
--- NOTE | 2018-06-12 18:27 | P.PNNS ---
Subjective Interval history: 06/12. Post op day 1 Doing well. Pain well controlled Physical Exam Vital signs: Vital Signs 06/11/18 19:00 06/11/18 19:07 06/11/18 19:30 Temperature 97.3 F L Pulse Rate 94 H 93 H 92 H Respiratory Rate 18 17 15 Blood Pressure 103/64 105/61 113/65 Pulse Oximetry 94 L 93 L 06/11/18 19:53 06/11/18 20:00 06/11/18 20:02 Temperature 97.7 F Pulse Rate 94 H 91 H Respiratory Rate 20 17 Blood Pressure 110/64 Pulse Oximetry 95 96 95 06/11/18 20:23 06/11/18 20:53 06/11/18 21:00 Temperature Pulse Rate 94 H 93 H 93 H Respiratory Rate 18 18 16 Blood Pressure 121/71 120/73 Pulse Oximetry 95 93 L 93 L 06/11/18 21:23 06/11/18 21:53 06/11/18 22:00 Temperature Pulse Rate 96 H 94 H 95 H Respiratory Rate 29 H 16 13 Blood Pressure 131/76 128/76 Pulse Oximetry 95 94 L 93 L 06/11/18 22:23 06/11/18 22:53 06/11/18 23:00 Temperature Pulse Rate 95 H 96 H 96 H Respiratory Rate 13 13 13 Blood Pressure 136/80 122/70 Pulse Oximetry 97 94 L 96 06/11/18 23:23 06/11/18 23:53 06/12/18 00:00 Temperature 97.9 F Pulse Rate 96 H 97 H 97 H Respiratory Rate 13 14 14 Blood Pressure 117/68 120/69 Pulse Oximetry 95 96 95 06/12/18 00:23 06/12/18 00:53 06/12/18 01:00 Temperature Pulse Rate 98 H 101 H 101 H Respiratory Rate 19 20 19 Blood Pressure 126/71 132/74 Pulse Oximetry 95 97 96 06/12/18 01:23 06/12/18 01:53 06/12/18 02:00 Temperature Pulse Rate 101 H 99 H 98 H Respiratory Rate 16 15 15 Blood Pressure 142/78 H 111/65 Pulse Oximetry 95 96 96 06/12/18 02:23 06/12/18 02:53 06/12/18 03:00 Temperature Pulse Rate 98 H 98 H 97 H Respiratory Rate 15 15 14 Blood Pressure 118/66 107/63 Pulse Oximetry 97 97 97 06/12/18 03:23 06/12/18 03:53 06/12/18 04:00 Temperature Pulse Rate 104 H 103 H 102 H Respiratory Rate 19 20 16 Blood Pressure 114/66 132/68 Pulse Oximetry 97 97 97 06/12/18 04:39 06/12/18 07:00 06/12/18 07:23 Temperature Pulse Rate 103 H 105 H Respiratory Rate 18 23 Blood Pressure 124/63 Pulse Oximetry 97 95 95 06/12/18 07:53 06/12/18 08:00 06/12/18 08:05 Temperature 98.3 F Pulse Rate 104 H 103 H Respiratory Rate 17 17 Blood Pressure 112/65 Pulse Oximetry 95 95 97 06/12/18 08:23 06/12/18 08:25 06/12/18 08:53 Temperature Pulse Rate 106 H 103 H Respiratory Rate 20 18 14 Blood Pressure 118/72 131/61 Pulse Oximetry 95 95 06/12/18 09:00 06/12/18 09:23 06/12/18 09:53 Temperature Pulse Rate 102 H 109 H 109 H Respiratory Rate 14 22 19 Blood Pressure 121/67 120/71 Pulse Oximetry 92 L 95 95 06/12/18 10:00 06/12/18 10:07 06/12/18 10:15 Temperature Pulse Rate 116 H 114 H Respiratory Rate 16 21 Blood Pressure 146/79 H Pulse Oximetry 97 06/12/18 10:23 06/12/18 10:53 06/12/18 11:00 Temperature Pulse Rate 99 H 99 H 98 H Respiratory Rate 20 20 20 Blood Pressure 135/74 112/68 Pulse Oximetry 95 98 93 L 06/12/18 11:23 06/12/18 11:53 06/12/18 12:00 Temperature 98.4 F Pulse Rate 107 H 102 H 103 H Respiratory Rate 20 20 20 Blood Pressure 110/64 119/67 Pulse Oximetry 93 L 96 96 06/12/18 12:23 06/12/18 12:53 06/12/18 13:00 Temperature Pulse Rate 105 H 109 H 107 H Respiratory Rate 18 18 18 Blood Pressure 121/72 121/67 Pulse Oximetry 98 94 L 94 L 06/12/18 13:23 06/12/18 13:53 06/12/18 14:00 Temperature Pulse Rate 113 H 114 H 115 H Respiratory Rate 18 18 18 Blood Pressure 123/75 134/72 Pulse Oximetry 95 97 96 06/12/18 14:23 06/12/18 14:53 06/12/18 15:00 Temperature Pulse Rate 120 H 118 H 118 H Respiratory Rate 18 18 18 Blood Pressure 133/76 145/70 H Pulse Oximetry 95 96 94 L 06/12/18 15:23 06/12/18 15:34 06/12/18 15:53 Temperature Pulse Rate 118 H 122 H Respiratory Rate 18 18 18 Blood Pressure 133/76 165/73 H Pulse Oximetry 96 96 06/12/18 16:00 06/12/18 16:23 06/12/18 16:53 Temperature 98.6 F Pulse Rate 121 H 117 H 114 H Respiratory Rate 18 18 18 Blood Pressure 137/86 143/79 H Pulse Oximetry 95 95 94 L 06/12/18 18:00 Temperature Pulse Rate 119 H Respiratory Rate Blood Pressure Pulse Oximetry Intake & Output 06/11/18 06/12/18 06/12/18 18:59 06:59 18:59 Intake Total 3050 / 3050 350 / 350 1450 / 1450 Output Total 2660 / 2660 520 / 520 1850 / 1850 Balance 390 / 390 -170 / -170 -400 / -400 Weight 49.2 kg Intake: IV 50 / 50 50 / 50 1050 / 1050 NS Inj 1,000 ML @ 75 mls/hr IV. 1000 / 1000 SIG .[id number] FRANCA Rx#:[id number] Ancef 2 GM Premix Inj 2 gm In 50 / 50 50 / 50 50 / 50 50 ml @ 100 mls/hr IV.SIG Q8H FRANCA Rx#:[id number] Oral 0 / 0 300 / 300 400 / 400 Anesthesia Amount 2300 / 2300 Other 700 / 700 Output: Estimated Blood Loss 200 / 200 Urine Amount (Catheter) 2400 / 2400 500 / 500 1800 / 1800 Indwelling Urethral Catheter 2400 / 2400 500 / 500 1800 / 1800 Wound Drainage 60 / 60 20 / 20 50 / 50 # 1 Back EUGENIO Drain 60 / 60 20 / 20 50 / 50 Other: # Bowel Movements 0 Weight On Admission 49.2 kg Narrative: Ms. Barragan is alert, awake and oriented to time, place and person. Speech is fluent. Incision dry Cranial nerve examination: pupils to be equal, round and reactive to light. Extra-ocular movements are intact. Facial motor and sensory function are normal and symmetrical. Gross hearing appears intact. Sternocleidomastoid and trapezius muscles are symmetrical. Other cranial nerves are intact. Neck is soft and supple with a good range of motion without pain. Muscle strength is normal in all muscle groups of both upper and lower extremities. Sensory examination is intact to light touch and pin prick in both upper extremities, and decreased in a L4 and L5 dermatomal distribution Deep tendon reflexes are symmetrical in both upper extremities. In the lower extremities the patella are trace and Achilles are 1+. There is a bilateral plantar flexion response. Cerebellar examination is unremarkable, without deficits. Lungs are clear. No wheezing Heart with regular rhythm and rate Skin dry and warm - Urinary Catheter Management Indwelling Urethral Catheter Cath placed during this visit: yes Reason for continuing: Hourly intake/output Insertion date: 06/11/18 Insertion time: 10:20 Assessment and Plan - Assessment (1) Degeneration of lumbar intervertebral disc Code(s): M51.36 - Other intervertebral disc degeneration, lumbar region Status : Acute (2) Spinal stenosis of lumbar region Code(s): M48.061 - Spinal stenosis, lumbar region without neurogenic claudication Status: Acute (3) Mechanical low back pain Code(s): M54.5 - Low back pain Status: Acute Plan: POD 1 Doing well. DC IV fluids Transfer to floor DC [facility]: aggressive pulmonary toilette, nasotracheal suction, and breathing treatments with nebulizers. Daily PT and OT Renal: Continue to monitor closely urine output, BUN and creatinine Endocrine: Continue to Monitor serial Acu checks and SSI as needed in detail ID continue to monitor for signs of infection Continue Protonix for stress ulcer prophylaxis Continue Trey holley and SCD's for DVT prophylaxis - Plan Tello discussed the [id number] details of the surgical procedure, its indications, alternatives, risks, and potential complications. Risks and potential complications include, but are not limited to, infection, blood loss, CSF leak, partial or complete loss of sight in one or both eyes, paresis, paralysis, permanent pain or difficulty swallowing, loss of bowel or bladder function, complications from anesthesia, blood clot, stroke, myocardial infarction, or even . The possibility of nonoperative treatment has been offered.
[2018-06-12] MEDS: Metoprolol Tartrate 25 MG Tablet PO SCH (21:36)
[2018-06-13] MEDS: Insulin NovoLOG Aspart Correctional Sugar Inj SQ SCH ×4 (09:18→21:53)
[2018-06-13] MEDS: Enoxaparin Inj 40 MG/0.4 ML Syringe SQ SCH (09:19)
[2018-06-13] MEDS: Senna/Docusate Sodium 8.6/50 MG Tablet PO SCH ×2 (09:19→20:05)
[2018-06-13] MEDS: Gabapentin 300 MG Capsule PO SCH ×2 (09:19→20:05)
[2018-06-13] MEDS: Metoprolol Tartrate 25 MG Tablet PO SCH ×2 (09:19→20:05)
--- NOTE | 2018-06-13 12:24 | P.PNIM ---
Subjective Interval history: no complaints,feeling well today. not in pain at present. Physical Exam Vital signs: Vital Signs 06/12/18 12:53 06/12/18 13:00 06/12/18 13:23 Temperature Pulse Rate 109 H 107 H 113 H Respiratory Rate 18 18 18 Blood Pressure 121/67 123/75 Pulse Oximetry 94 L 94 L 95 06/12/18 13:53 06/12/18 14:00 06/12/18 14:23 Temperature Pulse Rate 114 H 115 H 120 H Respiratory Rate 18 18 18 Blood Pressure 134/72 133/76 Pulse Oximetry 97 96 95 06/12/18 14:53 06/12/18 15:00 06/12/18 15:23 Temperature Pulse Rate 118 H 118 H 118 H Respiratory Rate 18 18 18 Blood Pressure 145/70 H 133/76 Pulse Oximetry 96 94 L 96 06/12/18 15:34 06/12/18 15:53 06/12/18 16:00 Temperature 98.6 F Pulse Rate 122 H 121 H Respiratory Rate 18 18 18 Blood Pressure 165/73 H Pulse Oximetry 96 95 06/12/18 16:23 06/12/18 16:53 06/12/18 18:00 Temperature Pulse Rate 117 H 114 H 119 H Respiratory Rate 18 18 Blood Pressure 137/86 143/79 H Pulse Oximetry 95 94 L 06/12/18 19:05 06/12/18 20:27 06/13/18 00:14 Temperature 97.5 F L 97.9 F Pulse Rate 108 H 89 Respiratory Rate 18 18 18 Blood Pressure 121/71 95/58 L Pulse Oximetry 98 99 06/13/18 05:00 06/13/18 05:21 06/13/18 08:00 Temperature 98.3 F 99.0 F Pulse Rate 104 H 105 H Respiratory Rate 18 17 20 Blood Pressure 155/82 H 120/72 Pulse Oximetry 95 93 L Intake & Output 06/12/18 06/13/18 06/13/18 18:59 06:59 18:59 Intake Total 1450 / 1450 1080 / 1080 Output Total 1850 / 1850 25 / 25 600 / 600 Balance -400 / -400 1055 / 1055 -600 / -600 Weight 55.4 kg Intake: IV 1050 / 1050 600 / 600 NS Inj 1,000 ML @ 75 mls/hr IV. 1000 / 1000 600 / 600 SIG .[id number] FRANCA Rx#:[id number] Ancef 2 GM Premix Inj 2 gm In 50 / 50 50 ml @ 100 mls/hr IV.SIG Q8H FRANCA Rx#:[id number] Oral 400 / 400 480 / 480 Output: Urine 600 / 600 Urine Amount (Catheter) 1800 / 1800 Indwelling Urethral Catheter 1800 / 1800 Wound Drainage 50 / 50 25 / 25 # 1 Back EUGENIO Drain 50 / 50 25 / 25 Other: # Voids 2 Date of Last Bowel Movement 06/11/18 # Bowel Movements 0 Narrative: GENERAL: elderly woman in good general condition, not in distress, seating on chair. HEENT:not pale,anicteric,nasal canula in situ. CARDIOVASCULAR: Regular rate and rhythm without murmurs, gallops, or rubs. RESPIRATORY: Clear to auscultation. Breath sounds equal bilaterally. No wheezes , rales, or rhonchi. GASTROINTESTINAL: Abdomen soft, non-tender, nondistended. Normal active bowel sounds MUSCULOSKELETAL: Extremities without clubbing, cyanosis, or edema.Back brace in place. NEURO: awake,alert, oriented. Urinary Catheter Management Indwelling Urethral Catheter: Cath placed during this visit: yes, but has since been removed by the nurse Reason for continuing: Decision to DC catheter Insertion date: 06/11/18 Insertion time: 10:20 Removal date: 06/12/18 Removal time: 19:41 Results Labs CBC & Chem 7: 06/11/18 17:37 06/11/18 17:37 Assessment and Plan (1) Degeneration of lumbar intervertebral disc: Code(s): M51.36 - Other intervertebral disc degeneration, lumbar region Status: Acute (2) Spinal stenosis of lumbar region: Code(s): M48.061 - Spinal stenosis, lumbar region without neurogenic claudication Status: Acute (3) Mechanical low back pain: Code(s): M54.5 - Low back pain Status: Acute Plan 78 yo F with h/o HTN,DM,Lower back pain, lumbar spinal stenosis, 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 H/o HTN--her systolic BP range has been in the 110's to 130's. Keep holding BP medication for now while inpatient, can resume if systolic persistently greater than 140. She should continue usual home meds on discharge. For her DM, would hold of Metformin while she is inpatient,and keep her on a low sliding scale insulin with glucose checks. Glucose within acceptable limits. Pain control as per surgical team. DVT ppx with Lovenox. I WILL SIGN OFF. THANK YOU FOR INVOLVING ME IN THIS PATIENT'S CARE.FEEL FREE TO RECONSULT IF NEED ARISES. Progress Note: Quality VTE Deep Vein Thrombosis/Pulmonary Embolism Present on Admission: No _ (1) Spinal stenosis of lumbar region Qualifiers: Neurogenic claudication status:
--- NOTE | 2018-06-13 13:39 | P.DS ---
Date of admission: 06/11/18 09:29 Primary care physician: No Primary Care Physician Attending physician on discharge: Steve Bhat Brief History from admission: Pt is a 78 year old female who previously underwent a previous lumbar surgery in 2010 with improvement of her pain and symptoms. Unfortunately she developed recurrent progressive pain in her low back. She denies associated falls or trauma. She also has pain radiating down her left buttocks posteriorly to her calf. She has numbness and tingling in both calves. She reports of weakness in both legs, left greater than right. She reports of urinary incontinence. She denies bladder incontinence but has urgency. She has undergone several periods of physical therapy multiple times for more than 6 months which only makes her pain worse. She also had three epidural steroid injections with Dr. Velazquez, her pain specialist without relief. She was evaluated by orthopedic surgeon Dr. Nelson who recommended surgery with bone graft. DS: Diagnosis - Discharge Diagnosis (1) Degeneration of lumbar intervertebral disc Status: Acute (2) Spinal stenosis of lumbar region Status: Acute (3) Mechanical low back pain Status: Acute DS: Summary Hospital Course: Pt underwent a L3-4, L4-L5 redo laminectomy, interbody arthrodhesis using PEEK cage and autologous bone graft, L3-4, L4-L5 instrumental fixation using transpedicular screws and rods, L3-4, L4-L5 posterolateral fusion using autologous bone graft and demineralized bone matrix. Microsurgical dissection on 06/11/[address] Bhat. She did well after the procedure. Postoperatively she was admitted to the medical surgical floor. He pain was controlled with a Dilaudid DIVER ASSISTANT and oral pain medication. Hospitalist was consulted for assistance with her history of hypertension and Diabetes. PT was consulted and her activity status was increased. She was discharged home in stable condition with home health care ordered. - Time Spent with Patient Total time spent providing and/or coordinating discharge services: Less than 30 minutes - Quality: VTE Deep Vein Thrombosis/Pulmonary Embolism Present on Admission: No Exam Vital signs: Vital Signs 06/12/18 13:53 06/12/18 14:00 06/12/18 14:23 Temperature Pulse Rate 114 H 115 H 120 H Respiratory Rate 18 18 18 Blood Pressure 134/72 133/76 Pulse Oximetry 97 96 95 06/12/18 14:53 06/12/18 15:00 06/12/18 15:23 Temperature Pulse Rate 118 H 118 H 118 H Respiratory Rate 18 18 18 Blood Pressure 145/70 H 133/76 Pulse Oximetry 96 94 L 96 06/12/18 15:34 06/12/18 15:53 06/12/18 16:00 Temperature 98.6 F Pulse Rate 122 H 121 H Respiratory Rate 18 18 18 Blood Pressure 165/73 H Pulse Oximetry 96 95 06/12/18 16:23 06/12/18 16:53 06/12/18 18:00 Temperature Pulse Rate 117 H 114 H 119 H Respiratory Rate 18 18 Blood Pressure 137/86 143/79 H Pulse Oximetry 95 94 L 06/12/18 19:05 06/12/18 20:27 06/13/18 00:14 Temperature 97.5 F L 97.9 F Pulse Rate 108 H 89 Respiratory Rate 18 18 18 Blood Pressure 121/71 95/58 L Pulse Oximetry 98 99 06/13/18 05:00 06/13/18 05:21 06/13/18 08:00 Temperature 98.3 F 99.0 F Pulse Rate 104 H 105 H Respiratory Rate 18 17 20 Blood Pressure 155/82 H 120/72 Pulse Oximetry 95 93 L Intake & Output 06/12/18 06/13/18 06/13/18 18:59 06:59 18:59 Intake Total 1450 / 1450 1080 / 1080 Output Total 1850 / 1850 25 / 25 600 / 600 Balance -400 / -400 1055 / 1055 -600 / -600 Weight 55.4 kg Intake: IV 1050 / 1050 600 / 600 NS Inj 1,000 ML @ 75 mls/hr IV. 1000 / 1000 600 / 600 SIG .[id number] FRANCA Rx#:[id number] Ancef 2 GM Premix Inj 2 gm In 50 / 50 50 ml @ 100 mls/hr IV.SIG Q8H FRANCA Rx#:[id number] Oral 400 / 400 480 / 480 Output: Urine 600 / 600 Urine Amount (Catheter) 1800 / 1800 Indwelling Urethral Catheter 1800 / 1800 Wound Drainage 50 / 50 25 / 25 # 1 Back EUGENIO Drain 50 / 50 Other: # Voids 2 Date of Last Bowel Movement 06/11/18 # Bowel Movements 0 Results Procedures completed during hospitalization: L3-4, L4-L5 redo laminectomy, interbody arthrodhesis using PEEK cage and autologous bone graft, L3-4, L4-L5 instrumental fixation using transpedicular screws and rods, L3-4, L4-L5 posterolateral fusion using autologous bone graft and demineralized bone matrix. Microsurgical dissection by Dr. Bhat on 06/11/18. Labs on day of discharge: Labs from last 24 hours 06/13/18 06/13/18 06/12/18 12:18 08:03 21:35 POC Glucose 176 H 151 H 150 H 06/12/18 16:29 POC Glucose 183 H - Impressions ITS Impressions Lumbar Spine X-Ray 06/11/18 00:00 CONCLUSION: Postsurgical changes. Discharge Plan - Discharge Disposition Patient Disposition: /Home Health Service - Discharge Order Discharge Orders: Discharge Order (Routine); Ordered 06/13/18 Ordered By: Gio Encinas - Physicians Team Primary Care Provider: Primary Care Rhonda Blackwell Attending Provider: Steve Bhat Other Providers: Clotilde Moreno MD - Rxs /Orders / Referrals /Forms Prescriptions: New cyclobenzaprine 10 mg Tablet 10 mg PO Q8H PRN (Reason: Muscle Spasm) RF: 0 Continue alendronate [Fosamax] 70 mg Tablet 70 mg PO TH gabapentin 300 mg Capsule 300 mg PO BID lisinopril 20 mg Tablet 20 mg PO DAILY metformin 500 mg Tablet Extended Release 24 Hr 500 mg PO BID metoprolol tartrate 25 mg Tablet 25 mg PO BID Discontinued diclofenac sodium 75 mg Tablet,Delayed Release (Dr/Ec) 75 mg PO BID Referrals: Primary Care Rhonda Blackwell [Primary Care Provider] - See Instructions - Discharge Instructions Patient Printed Instructions: Laminectomy (DC)
--- NOTE | 2018-06-13 13:43 | P.DCO ---
- Diagnosis (1) Degeneration of lumbar intervertebral disc Status: Acute (2) Mechanical low back pain Status: Acute (3) Spinal stenosis of lumbar region Status: Acute - Physical Therapy Order: Evaluate and treat, Improve ambulation, Strength and gait training - Home Health Nursing Order: Wound care and dressing changes, Nursing assessment with vital signs - Case Management Consult Case Management Consult-Home Health: Yes - Certification I have seen patient Tracie Barragan on 06/13/18. My clinical findings support the need for the requested home health care services because: Deconditioned with increased weakness, Impaired cognition/judgement, High risk of falls I certify that my clinical findings support that this patient is homebound because: Post-op weakness, Unsteady gait/balance, Unable to use public transportation
--- NOTE | 2018-06-13 19:39 | P.PNNS ---
Subjective Interval history: 06/13. Her pain is better controlled. Incision dry. Reports constipation Physical Exam Vital signs: Vital Signs 06/12/18 20:27 06/13/18 00:14 06/13/18 05:00 Temperature 97.5 F L 97.9 F 98.3 F Pulse Rate 108 H 89 104 H Respiratory Rate 18 18 18 Blood Pressure 121/71 95/58 L 155/82 H Pulse Oximetry 98 99 95 06/13/18 05:21 06/13/18 08:00 06/13/18 12:00 Temperature 99.0 F 97.1 F L Pulse Rate 105 H 96 H Respiratory Rate 17 20 20 Blood Pressure 120/72 123/67 Pulse Oximetry 93 L 93 L 06/13/18 16:00 Temperature 97.7 F Pulse Rate 88 Respiratory Rate 20 Blood Pressure 136/85 Pulse Oximetry 93 L Intake & Output 06/13/18 06/13/18 06/14/18 06:59 18:59 06:59 Intake Total 1080 / 1080 Output Total 600 / 600 Balance 1055 / 1055 -600 / -600 Weight 55.4 kg Intake: IV 600 / 600 NS Inj 1,000 ML @ 75 mls/hr IV. 600 / 600 SIG .[id number] FRANCA Rx#:[id number] Oral 480 / 480 Output: Urine 600 / 600 Wound Drainage # 1 Back EUGENIO Drain Other: # Voids 2 Date of Last Bowel Movement 06/11/18 Narrative: Ms. Barragan is alert, awake and oriented to time, place and person. Speech is fluent. Incision dry Cranial nerve examination: pupils to be equal, round and reactive to light. Extra-ocular movements are intact. Facial motor and sensory function are normal and symmetrical. Gross hearing appears intact. Sternocleidomastoid and trapezius muscles are symmetrical. Other cranial nerves are intact. Neck is soft and supple with a good range of motion without pain. Muscle strength is normal in all muscle groups of both upper and lower extremities. Sensory examination is intact to light touch and pin prick in both upper extremities, and decreased in a L4 and L5 dermatomal distribution Deep tendon reflexes are symmetrical in both upper extremities. In the lower extremities the patella are trace and Achilles are 1+. There is a bilateral plantar flexion response. Cerebellar examination is unremarkable, without deficits. - Urinary Catheter Management Indwelling Urethral Catheter Cath placed during this visit: yes, but has since been removed by the nurse Reason for continuing: Decision to DC catheter Insertion date: 06/11/18 Insertion time: 10:20 Removal date: 06/12/18 Removal time: 19:41 Assessment and Plan - Assessment (1) Degeneration of lumbar intervertebral disc Code(s): M51.36 - Other intervertebral disc degeneration, lumbar region Status : Acute (2) Spinal stenosis of lumbar region Code(s): M48.061 - Spinal stenosis, lumbar region without neurogenic claudication Status: Acute (3) Mechanical low back pain Code(s): M54.5 - Low back pain Status: Acute Plan: POD 1 Doing well. DC IV fluids Transfer to floor DC [facility]: aggressive pulmonary toilette, nasotracheal suction, and breathing treatments with nebulizers. Daily PT and OT Renal: Continue to monitor closely urine output, BUN and creatinine Endocrine: Continue to Monitor serial Acu checks and SSI as needed in detail ID continue to monitor for signs of infection Continue Protonix for stress ulcer prophylaxis Continue Trey hose and SCD's for DVT prophylaxis - Plan Status post TLIF 06/11 Continue neuro: neuro checks in a serial fashion and pain control She is doing very well No complications H/o HTN--her systolic BP range has been in the 110's to 130's. Keep holding BP medication for now while inpatient, can resume if systolic persistently greater than 140. She should continue usual home meds on discharge. Pulmonary: aggressive pulmonary toilette, nasotracheal suction, and breathing treatments with nebulizers. Daily PT and OT Renal: Continue to monitor closely urine output, BUN and creatinine Endocrine: Continue to Monitor serial Acu checks and SSI as needed in detail ID continue to monitor for signs of infection Continue Protonix for stress ulcer prophylaxis Continue Trey hose and SCD's for DVT prophylaxis Further recommendations will be provided depending on the patient's clinical evaluation and follow up studies. Plan to discharge to home in AM
[2018-06-14 07:47] VITALS: RESP 18; O2SAT 93
[2018-06-14] MEDS: Senna/Docusate Sodium 8.6/50 MG Tablet PO SCH (09:11)
[2018-06-14] MEDS: Enoxaparin Inj 40 MG/0.4 ML Syringe SQ SCH (09:11)
[2018-06-14] MEDS: Metoprolol Tartrate 25 MG Tablet PO SCH (09:11)
[2018-06-14] MEDS: Gabapentin 300 MG Capsule PO SCH (09:11)
[2018-06-14] MEDS: Insulin NovoLOG Aspart Correctional Sugar Inj SQ SCH (09:15)
[2018-06-14 12:05] VITALS: BP 113/77; PULSE 92; TEMP 97.5
== END 2018-06-14 12:18 | disposition home health service (06) | DRG 455 ==
LOC: HSDC 07:53 → HSDI 09:29 → EDSTATUS 10:00 → N03 19:10 → N06 06-12 20:20
PROVIDERS: ADMIT Neurological Surgery; ATTEND Neurological Surgery
DX: M19.90 Unspecified osteoarthritis, unspecified site; R53.1 Weakness; M81.0 Age-related osteoporosis without current pathological fracture; R26.81 Unsteadiness on feet; R32 Unspecified urinary incontinence; E11.9 Type 2 diabetes mellitus without complications; M48.061 Spinal stenosis, lumbar region without neurogenic claudication; M51.16 Intervertebral disc disorders with radiculopathy, lumbar region; I10 Essential (primary) hypertension; Z79.84 Long term (current) use of oral hypoglycemic drugs
CPT/HCPCS: 72100; 76000; 80048; 82948; 82962; 85025; 86850; 86900; 86901; 94150; 97110; 97116; 97163; C1713; C1776; C9290; J0690; J1100; J1580; J1650; J1815; J2270; J2370; J2405; J2704; J2710; J3010; J3370; J7030; J7050; J7120; J8501; L0484; L0560; L0565